=== PATIENT | male | born 1985 | race Caucasian/White ===

== ENCOUNTER 2018-11-19 23:19 | Emergency (ER) | payer OTHER ==
[~2018-11-19] VITALS: Ht 190.5 cm; Wt 108.9 kg
[2018-11-20] MEDS ORDERED: LEVSIN/SL0.125 MG SL (02:54)
[2018-11-20] MEDS ORDERED: PEPCID40 MG PO (02:54)
[2018-11-20] MEDS ORDERED: ZOFRAN4 MG PO (02:59)
== END 2018-11-20 03:11 | disposition home or self-care (01) ==
LOC: ER 23:19
DX: T61.8X1A Toxic effect of other seafood, accidental (unintentional), initial encounter (principal); R11.2 Nausea with vomiting, unspecified